=== PATIENT | female | born 1975 | race Caucasian/White ===

== ENCOUNTER 2016-08-25 21:10 | Emergency (ER) | payer OTHER ==
--- NOTE | 2016-08-25 23:12 | DIAGNOSTIC IMAGING REPORT ---
PROCEDURE: XR CHEST 1 VIEW INDICATION: SHORTNESS OF BREATH TECHNIQUE: Portable AP view 09:50 p.m. COMPARISON: None. FINDINGS: Lungs are clear. Heart and mediastinum are normal. Thorax is normal. IMPRESSION: 1. Negative chest.
--- NOTE | 2016-08-25 23:28 | ED ORDER SUMMARY ---
..... Patient: LOUISE LAINEZ OrderSheet [facility] VisitID: [id number] [place] [address] 41y, F Registration Date/Time: 08/25/2016 ORDER SHEET Weight: 90.7 kg (stated) Allergies: None GENERAL ORDERS: Chest 1V Urgent (21:42 08/25/2016 Jennifer Villalobos) (Ack 21:49 Mary Carmen) (21:55 MCampbell) Cardiac Panel Stat (21:43 08/25/2016 Jennifer Villalobos) (Ack 21:49 Mary Carmen) (22:07 RMarsden R.N.) BNP Urgent (21:43 08/25/2016 Jennifer Villalobos) (Ack 21:49 Mary Carmen) (22:07 RMarsden R.N.) D-Dimer Urgent (21:43 08/25/2016 Jennifer Villalobos) (Ack 21:49 Mary Carmen) (22:07 RMarsden R.N.) UA-Culture if indicated Urgent (21:43 08/25/2016 Jennifer Villalobos) (Ack 21:49 Mary Carmen) (Collected 22:43 RMarsden R.N.) (23:28 RMarsden R.N.) MEDICATION ORDERS: IV FLUIDS: IV Saline Lock (21:43 08/25/2016 Jennifer Villalobos) (22:07 RMarsden R.N.) ORDER SHEET NOTES: [Electronically signed by Sharon Mcfarlane R.N. (05:49 08/26/2016)] [Electronically signed by Reinaldo Cho Dr. (05:59 08/26/2016)] [Electronically locked/signed by Sharon Mcfarlane R.N. (05:49 08/26/2016)]
--- NOTE | 2016-08-25 23:28 | ED CLINICAL REPORT ---
Clinical Report - Physicians/Mid Levels [facility] [address] [place] [address] 08/25/2016 21:13 Patient: LOUISE LAINEZ Time Seen: 21:34; initial patient contact. Arrived- By private vehicle. Historian- patient. HISTORY OF PRESENT ILLNESS Chief Complaint: DYSPNEA and HISTORY OF ASTHMA. This started today and is still present. It was gradual in onset and has been constant. The dyspnea is described as mild. The dyspnea is worsened by cough (No better with ALbuterol). She has not had worsening of dyspnea with walking, exertion or supine position. No improvement of dyspnea with rest or sitting upright. The patient has had a cough, chest discomfort and wheezing. No sputum production, fever, sweating episodes, chills or dyspnea on exertion. No chest pain, calf pain, foot swelling, anxiety or dizziness. No palpitations. Similar symptoms previously: Many times. Recent medical care: Not recently seen/assessed. REVIEW OF SYSTEMS No nasal discharge, sinus drainage or calf pain. She has had pedal edema. All systems otherwise negative, except as recorded above. PAST HISTORY Kidney Cyst. Depression. SURGERIES: Breast Reduction. Hysterectomy. Tonsillectomy. Tubal Ligation. SOCIAL HISTORY Current every day smoker. Occasional alcohol use. No drug use. ADDITIONAL NOTES The nursing notes have been reviewed. PHYSICAL EXAM Vital Signs: 08/25/2016 21:16 BP: 128/72. HR: 75. RR: 16. O2 saturation: 100%. Pain level now: 0/10. Have been reviewed as normal. Appearance: Alert. No acute distress. Eyes: Eyes normal inspection. ENT: Pharynx normal. Neck: Normal inspection. Jugular venous distention present. CVS: Normal heart rate and rhythm. 2/6 holosystolic systolic murmur located at the base. No radiation of systolic murmur. Respiratory: No respiratory distress. Breath sounds normal. No chest wall tenderness. Skin: Skin warm and dry. Normal skin color. Extremities: Bilateral mild non-pitting edema of the lower extremities involving both feet and both ankles. No calf tenderness. Neuro: Oriented X 3. LABS, X-RAYS, AND EKG EKG: EKG time: (2118). No acute process. No acute ischemia. Normal EKG. Normal sinus rhythm. Rate: 82. Normal P waves. Normal CARMEN. Normal QRS complex. Normal axis. Normal ST and T waves, QT and QTc. Prior EKG unavailable. The study has been interpreted contemporaneously by me. The study has been independently viewed by me. The EKG appears to be a good tracing. Interpretation time: 2118. Chest X-ray: No acute disease. Normal lung markings present. Normal heart size. Mediastinum normal. Great vessels normal. No infiltrate. Views: AP. Technique: good. The X-rays were independently viewed by me and interpreted contemporaneously by me. Prior films were not available for comparison. Interpretation time: 22:02. Laboratory Tests: CBC w Diff: (MELANIE: 08/25/2016 21:50) ( MsgRcvd 08/25/2016 22:06) Final results Test Result Flag Units (Reference) WHITE BLOOD COUNT 10.2 K/uL (4.5-11.5) RED BLOOD COUNT 4.01 M/uL (4.00-5.20) HEMOGLOBIN 13.3 gm/dL (12.0-16.0) HEMATOCRIT 38.7 % (36.0-46.0) MEAN CELL VOLUME 96 fL (80-100) MEAN CORPUSCULAR HGB 33 pg (26-34) MEAN CORPUSCULAR HGB CONC 34 g/dL (31-37) RED CELL DISTRIBUTION WIDTH 13.7 % (11.6-14.8) PLATELET COUNT 188 K/uL (150-400) NEUTROPHIL % 58.0 % (50-75) LYMPH % 29.3 % (25-40) MONO % 3.6 % (3-14) EOSINOPHIL % 7.9 H % (0-4) BASOPHIL % 1.2 % (0-2) . PROGRESS AND PROCEDURES Disposition: Discharged home in good and improved condition. Condition: good. CLINICAL IMPRESSION Atypical chest pain .12 lead EKG performed. INSTRUCTIONS Do not work tomorrow. Avoid tobacco smoke. Do not smoke- benefits of smoking cessation discussed (>3 -10 minutes) and provided smoking cessation materials. Seek medical help to quit smoking. Your Current Medications: CONTINUE TAKING THE FOLLOWING MEDICATIONS: Albuterol Sulfate ER Oral. Lexapro Oral. Xanax Oral. Follow-up: Follow up with your doctor in about four days. Call for an appointment. Screening today revealed the patient's blood pressure to be in the pre-hypertensive range. The patient should follow up with a primary care provider for blood pressure management. (Electronically signed by Reinaldo Cho Dr. 08/26/2016 5:59)
--- NOTE | 2016-08-25 23:28 | ED ORDER SUMMARY ---
..... Patient: LOUISE LAINEZ OrderSheet [facility] VisitID: [id number] [place] [address] 41y, F Registration Date/Time: 08/25/2016 ORDER SHEET Weight: 90.7 kg (stated) Allergies: None GENERAL ORDERS: Chest 1V Urgent (21:42 08/25/2016 Jennifer Villalobos) (Ack 21:49 Mary Carmen) (21:55 MCampbell) Cardiac Panel Stat (21:43 08/25/2016 Jennifer Villalobos) (Ack 21:49 Mary Carmen) (22:07 RMarsden R.N.) BNP Urgent (21:43 08/25/2016 Jennifer Villalobos) (Ack 21:49 Mary Carmen) (22:07 RMarsden R.N.) D-Dimer Urgent (21:43 08/25/2016 Jennifer Villalobos) (Ack 21:49 Mary Carmen) (22:07 RMarsden R.N.) UA-Culture if indicated Urgent (21:43 08/25/2016 Jennifer Villalobos) (Ack 21:49 Mary Carmen) (Collected 22:43 RMarsden R.N.) (23:28 RMarsden R.N.) MEDICATION ORDERS: IV FLUIDS: IV Saline Lock (21:43 08/25/2016 Jennifer Villalobos) (22:07 RMarsden R.N.) ORDER SHEET NOTES: [Electronically signed by Sharon Mcfarlane R.N. (05:49 08/26/2016)] [Electronically signed by Reinaldo Cho Dr. (05:59 08/26/2016)] [Electronically locked/signed by Sharon Mcfarlane R.N. (05:49 08/26/2016)]
--- NOTE | 2016-08-25 23:28 | ED NURSING NOTES ---
Clinical Report - Nurses [facility] [address] [place] [address] 08/25/2016 21:13 [id number] Triage time 12:16. Acuity: LEVEL 3. Chief Complaint: SHORTNESS OF BREATH and CHEST PAIN (weakness). 21:27 08/25/16. Alert. No acute distress. JEFERSON COMA SCORE: [place] Coma Scale: 15- eyes open spontaneously (4); best verbal response- oriented x 4 (5); best motor response- obeys commands (6). --21:27 Sharon Mcfarlane R.N. 21:16 08/25/16. BP: 128/72. HR: 75. RR: 16. O2 saturation: 100%. Pain level now: 0/10. --21:27 Sharon Mcfarlane R.N. 21:18. --05:49 Sharon Mcfarlane R.N. 05:48 08/26/16. Temp: 97.6 F. --05:49 Sharon Mcfarlane R.N. Weight: 90.7 kg stated. Height/Length: 62.5 inches Per Patient. BMI: 36. --21:24 Sharon Mcfarlane R.N. Medications Albuterol Sulfate ER Oral. --21:21 Sharon Mcfarlane R.N. Lexapro Oral. --21:21 Sharon Mcfarlane R.N. Xanax Oral. --21:21 Sharon Mcfarlane R.N. Allergies None. --05:49 Sharon Mcfarlane R.N. History Arrived by private vehicle. Historian: patient and family. Accompanied by family and daughter and sister. This started today. ( Patient states she felt fatigued when she woke up this morning and noticed there was swelling in her feet. She states a couple of hours ago she started feeling SOB and chest pressure. She states " Usually albuterol helps when I cant catch my breath but it hasnt today."). ( leg swelling). Treatment BUSINESS AFFAIRS MANAGER: (albuterol.). PAST MEDICAL HX: Asthma. Immunizations: up-to-date. Denies current . SOCIAL HX: Heavy tobacco smoker- 1-2 packs per day. Occasional alcohol use. No drug use. FALL RISK ASSESSMENT: Fall risk assessment completed. No fall risk identified. NUTRITIONAL RISK ASSESSMENT: The nutritional risk assessment revealed no deficiencies. FUNCTIONAL ASSESSMENT: Functional assessment: no impairments noted. LEARNING NEEDS ASSESSMENT: The learning needs assessment revealed no barriers. SKIN INTEGRITY ASSESSMENT: Skin integrity risk assessment completed. No skin integrity risk identified. --21:27 Sharno Mcfarlane R.N. PROBLEMS: Kidney Cyst. Depression. --21: Sharon Mcfarlane R.N. ADDITIONAL SURGERIES: Breast Reduction. Hysterectomy. Tonsillectomy. Tubal Ligation. --: Sharon Mcfarlane R.N. Interventions ID band on patient. To treatment room. --: Sharon Mcfarlane R.N. PHYSICAL ASSESSMENT 21:27 08/25/16. Ambulatory to room. GENERAL / NEURO / PSYCH: Alert. Oriented X 4. Appears in no acute distress. HEENT: Mucous membranes are pink. RESPIRATORY: No respiratory distress. Respirations not labored. Breath sounds within normal limits. CVS: Capillary refill less than 2 seconds. SKIN: Skin is warm and dry. --:27 Sharon Mcfarlane R.N. NURSING PROGRESS NOTES 21:42 08/25/2016 Site #1 started via IV in the right hand with an 20g angiocath; one attempt. Saline lock flushed with 10 mL saline. --22:07 Sharon Mcfarlane R.N. 21:47. night monitor, pulse oximeter and NIBP monitor placed on patient. Patient gowned. Two patient identifiers checked. Call light placed in reach. Side rails up x 2. Bed placed in lowest position. Brakes of bed on. --22:41 Sharon Mcfarlane R.N. 22:21. Patient ID band checked for patient name and birthdate: patient confirmed. Instructions provided to collect clean catch urine and patient verbalized understanding. Clean catch urine collected with return of yellow-colored clear urine; sample sent to lab for urinalysis. Specimen labeled in the presence of the patient. --22:40 Sharon Mcfarlane R.N. EKG time: (2118). EKG was ordered, performed by a tech and shown to the ED physician. --22:50 Zach Zavala, ER Hydroelectric Production Manager. DISPOSITION / DISCHARGE 23:33 08/25/16. BP: 111/61. HR: 81. RR: 16. O2 saturation: 95% on room air. Temp: deferred. Pain level now: 0/10. --23:34 Sharon Mcfarlane R.N. 23:29 08/25/2016 Site #1 removed upon discharge. Manual pressure and bandaid applied. --23:39 Sharon Mcfarlane R.N. 23:34 08/25/16. No learning barriers present. Discharge instructions provided and reviewed with the patient and family. Work note given. Patient and family verbalized understanding. Written instructions provided in Dominican. The patient was discharged home and accompanied by family. She left the Emergency Department ambulatory and via private vehicle. Family member driving. --23:34 Sharon Mcfarlane R.N. Locked/Released at 08/26/2016 5:49 by Sharon Mcfarlane R.N.
--- NOTE | 2016-08-25 23:28 | ED NURSING NOTES ---
Clinical Report - Nurses [facility] [address] [place] [address] 08/25/2016 21:13 [id number] Triage time 12:16. Acuity: LEVEL 3. Chief Complaint: SHORTNESS OF BREATH and CHEST PAIN (weakness). 21:27 08/25/16. Alert. No acute distress. JEFERSON COMA SCORE: [place] Coma Scale: 15- eyes open spontaneously (4); best verbal response- oriented x 4 (5); best motor response- obeys commands (6). --21:27 Sharon Mcfarlane R.N. 21:16 08/25/16. BP: 128/72. HR: 75. RR: 16. O2 saturation: 100%. Pain level now: 0/10. --21:27 Sharon Mcfarlane R.N. 21:18. --05:49 Sharon Mcfarlane R.N. 05:48 08/26/16. Temp: 97.6 F. --05:49 Sharon Mcfarlane R.N. Weight: 90.7 kg stated. Height/Length: 62.5 inches Per Patient. BMI: 36. --21:24 Sharon Mcfarlane R.N. Medications Albuterol Sulfate ER Oral. --21:21 Sharon Mcfarlane R.N. Lexapro Oral. --21:21 Sharon Mcfarlane R.N. Xanax Oral. --21:21 Sharon Mcfarlane R.N. Allergies None. --05:49 Sharon Mcfarlane R.N. History Arrived by private vehicle. Historian: patient and family. Accompanied by family and daughter and sister. This started today. ( Patient states she felt fatigued when she woke up this morning and noticed there was swelling in her feet. She states a couple of hours ago she started feeling SOB and chest pressure. She states " Usually albuterol helps when I cant catch my breath but it hasnt today."). ( leg swelling). Treatment SCRAP SORTER: (albuterol.). PAST MEDICAL HX: Asthma. Immunizations: up-to-date. Denies current . SOCIAL HX: Heavy tobacco smoker- 1-2 packs per day. Occasional alcohol use. No drug use. FALL RISK ASSESSMENT: Fall risk assessment completed. No fall risk identified. NUTRITIONAL RISK ASSESSMENT: The nutritional risk assessment revealed no deficiencies. FUNCTIONAL ASSESSMENT: Functional assessment: no impairments noted. LEARNING NEEDS ASSESSMENT: The learning needs assessment revealed no barriers. SKIN INTEGRITY ASSESSMENT: Skin integrity risk assessment completed. No skin integrity risk identified. --21:27 Sharon Mcfarlane R.N. PROBLEMS: Kidney Cyst. Depression. --21: Sharon Mcfarlane R.N. ADDITIONAL SURGERIES: Breast Reduction. Hysterectomy. Tonsillectomy. Tubal Ligation. --: Sharon Mcfarlane R.N. Interventions ID band on patient. To treatment room. --: Sharon Mcfarlane R.N. PHYSICAL ASSESSMENT 21:27 08/25/16. Ambulatory to room. GENERAL / NEURO / PSYCH: Alert. Oriented X 4. Appears in no acute distress. HEENT: Mucous membranes are pink. RESPIRATORY: No respiratory distress. Respirations not labored. Breath sounds within normal limits. CVS: Capillary refill less than 2 seconds. SKIN: Skin is warm and dry. --:27 Sharon Mcfarlane R.N. NURSING PROGRESS NOTES 21:42 08/25/2016 Site #1 started via IV in the right hand with an 20g angiocath; one attempt. Saline lock flushed with 10 mL saline. --22:07 Sharon Mcfarlane R.N. 21:47. business solutions consultant, pulse oximeter and NIBP monitor placed on patient. Patient gowned. Two patient identifiers checked. Call light placed in reach. Side rails up x 2. Bed placed in lowest position. Brakes of bed on. --22:41 Sharon Mcfarlane R.N. 22:21. Patient ID band checked for patient name and birthdate: patient confirmed. Instructions provided to collect clean catch urine and patient verbalized understanding. Clean catch urine collected with return of yellow-colored clear urine; sample sent to lab for urinalysis. Specimen labeled in the presence of the patient. --22:40 Sharon Mcfarlane R.N. EKG time: (2118). EKG was ordered, performed by a tech and shown to the ED physician. --22:50 Zach Zavala, ER Biochemistry Technologist. DISPOSITION / DISCHARGE 23:33 08/25/16. BP: 111/61. HR: 81. RR: 16. O2 saturation: 95% on room air. Temp: deferred. Pain level now: 0/10. --23:34 Sharon Mcfarlane R.N. 23:29 08/25/2016 Site #1 removed upon discharge. Manual pressure and bandaid applied. --23:39 Sharon Mcfarlane R.N. 23:34 08/25/16. No learning barriers present. Discharge instructions provided and reviewed with the patient and family. Work note given. Patient and family verbalized understanding. Written instructions provided in Dutch. The patient was discharged home and accompanied by family. She left the Emergency Department ambulatory and via private vehicle. Family member driving. --23:34 Sharon Mcfarlane R.N. Locked/Released at 08/26/2016 5:49 by Sharon Mcfarlane R.N.
--- NOTE | 2016-08-26 05:59 | ED DISCHARGE INSTRUCTIONS ---
Patient: LOUISE LAINEZ General Instructions [facility] VisitID: [id number] [place] [address] 41y, F Registration Date/Time: 08/25/2016 Atypical chest pain .12 lead EKG performed. INSTRUCTIONS Do not work tomorrow. Avoid tobacco smoke. Do not smoke- benefits of smoking cessation discussed (>3 -10 minutes) and provided smoking cessation materials. Seek medical help to quit smoking. Your Current Medications: CONTINUE TAKING THE FOLLOWING MEDICATIONS: Albuterol Sulfate ER Oral. Lexapro Oral. Xanax Oral. Follow-up: Follow up with your doctor in about four days. Call for an appointment. Screening today revealed the patient's blood pressure to be in the pre-hypertensive range. The patient should follow up with a primary care provider for blood pressure management. ADDITIONAL INFORMATION Chest Pain, Noncardiac Based on your visit today, the exact cause of your chest pain is not certain. Your condition does not seem serious and your pain does not appear to be coming from your heart. However, sometimes the signs of a serious problem take more time to appear. Therefore, please watch for the warning signs listed below. Home Care: Rest today and avoid strenuous activity. Take any prescribed medicine as directed. Follow Up with your doctor or this facility as instructed or if you do not start to feel better within 24 hours. Get Prompt Medical Attention if any of the following occur: A change in the type of pain: if it feels different, becomes more severe, lasts longer, or begins to spread into your shoulder, arm, neck, jaw or back Shortness of breath or increased pain with breathing Cough with dark colored sputum (phlegm) or blood Weakness, dizziness, or fainting Fever of 100.4F (38C) or higher, or as directed by your healthcare provider Swelling, pain or redness in one leg How To Quit Smoking Smoking is one of the hardest habits to break. About half of all those who have ever smoked have been able to quit, and most of those (about 70%) who still smoke want to quit. Here are some of the best ways to stop smoking. Keep Trying: It takes most smokers about 8 tries before they are finally able to fully quit. So, the more often you try and fail, the better your chance of quitting the next time! So, don't give up! Go Cold [place]: Most ex-smokers quit cold turkey. Trying to cut back gradually doesn't seem to work as well, perhaps because it continues the smoking habit. Also, it is possible to fool yourself by inhaling more while smoking fewer cigarettes. This results in the same amount of nicotine in your body! Get Support: Support programs can make an important difference, especially for the heavy smoker. These groups offer lectures, methods to change your behavior and peer support. Call the free national Quitline for more information. 338-YZPC-GCE (873-399-1447). Low-cost or free programs are offered by many hospitals, local chapters of the [place] [employer] (077-953-3769) and the [place] [employer] (400-348-3583). Support at home is important too. Non-smokers can help by offering praise and encouragement. If the smoker fails to quit, encourage them to try again! Cpaa-Zmn-Kbubdoq Medicines: For those who can't quit on their own, Nicotine Replacement Therapy (NRT) may make quitting much easier. Certain aids such as the nicotine patch, gum and lozenge are available without a prescription. However, it is best to use these under the guidance of your doctor. The skin patch provides a steady supply of nicotine to the body. Nicotine gum and lozenge gives temporary bursts of low levels of nicotine. Both methods take the edge off the craving for cigarettes. WARNING: If you feel symptoms of nicotine overdose, such as nausea, vomiting, dizziness, weakness, or fast heartbeat, stop using these and see your doctor. Prescription Medicines: After evaluating your smoking patterns and prior attempts at quitting, your doctor may offer a prescription medicine such as bupropion (Zyban, Wellbutrin), varenicline (Chantix, Champix), a niocotine inhaler or nasal spray. Each has its unique advantage and side effects which your doctor can review with you. Health Benefits Of Quitting: The benefits of quitting start right away and keep improving the longer you go without smokin minutes: blood pressure and pulse return to normal 8 hours: oxygen levels return to normal 2 days: ability to smell and taste begins to improve as damaged nerves start to regrow 2-3 weeks: circulation and lung function improves 1-9 months: decreased cough, congestion and shortness of breath; less tired 1 year: risk of heart attack decreases by half 5 years: risk of lung cancer decreases by half; risk of stroke becomes the same as a non-smoker For information about how to quit smoking, visit the following links: National Cancer [place] , Clearing the Air, Quit Smoking Today - an online booklet. http://www.smokefree.gov/pubs/clearing_the_air.pdf Smokefree.gov http://smokefree.gov/ QuitNet http://www.quitnet.com/ You have been given the following additional information: Chest Pain, Noncardiac Smoking Cessation Do not work tomorrow. (Electronically signed by Reinaldo Cho Dr. 08/26/2016 5:59)
--- NOTE | 2016-08-26 05:59 | ED DISCHARGE INSTRUCTIONS ---
Patient: LOUISE LAINEZ General Instructions [facility] VisitID: [id number] [place] [address] 41y, F Registration Date/Time: 08/25/2016 Atypical chest pain .12 lead EKG performed. INSTRUCTIONS Do not work tomorrow. Avoid tobacco smoke. Do not smoke- benefits of smoking cessation discussed (>3 -10 minutes) and provided smoking cessation materials. Seek medical help to quit smoking. Your Current Medications: CONTINUE TAKING THE FOLLOWING MEDICATIONS: Albuterol Sulfate ER Oral. Lexapro Oral. Xanax Oral. Follow-up: Follow up with your doctor in about four days. Call for an appointment. Screening today revealed the patient's blood pressure to be in the pre-hypertensive range. The patient should follow up with a primary care provider for blood pressure management. ADDITIONAL INFORMATION Chest Pain, Noncardiac Based on your visit today, the exact cause of your chest pain is not certain. Your condition does not seem serious and your pain does not appear to be coming from your heart. However, sometimes the signs of a serious problem take more time to appear. Therefore, please watch for the warning signs listed below. Home Care: Rest today and avoid strenuous activity. Take any prescribed medicine as directed. Follow Up with your doctor or this facility as instructed or if you do not start to feel better within 24 hours. Get Prompt Medical Attention if any of the following occur: A change in the type of pain: if it feels different, becomes more severe, lasts longer, or begins to spread into your shoulder, arm, neck, jaw or back Shortness of breath or increased pain with breathing Cough with dark colored sputum (phlegm) or blood Weakness, dizziness, or fainting Fever of 100.4F (38C) or higher, or as directed by your healthcare provider Swelling, pain or redness in one leg How To Quit Smoking Smoking is one of the hardest habits to break. About half of all those who have ever smoked have been able to quit, and most of those (about 70%) who still smoke want to quit. Here are some of the best ways to stop smoking. Keep Trying: It takes most smokers about 8 tries before they are finally able to fully quit. So, the more often you try and fail, the better your chance of quitting the next time! So, don't give up! Go Cold [place]: Most ex-smokers quit cold turkey. Trying to cut back gradually doesn't seem to work as well, perhaps because it continues the smoking habit. Also, it is possible to fool yourself by inhaling more while smoking fewer cigarettes. This results in the same amount of nicotine in your body! Get Support: Support programs can make an important difference, especially for the heavy smoker. These groups offer lectures, methods to change your behavior and peer support. Call the free national Quitline for more information. 616-YSIL-TGM (342-428-8388). Low-cost or free programs are offered by many hospitals, local chapters of the [employer] [employer] (161-704-4395) and the [employer] (610-612-8993). Support at home is important too. Non-smokers can help by offering praise and encouragement. If the smoker fails to quit, encourage them to try again! [id number]-[id number] Medicines: For those who can't quit on their own, Nicotine Replacement Therapy (NRT) may make quitting much easier. Certain aids such as the nicotine patch, gum and lozenge are available without a prescription. However, it is best to use these under the guidance of your doctor. The skin patch provides a steady supply of nicotine to the body. Nicotine gum and lozenge gives temporary bursts of low levels of nicotine. Both methods take the edge off the craving for cigarettes. WARNING: If you feel symptoms of nicotine overdose, such as nausea, vomiting, dizziness, weakness, or fast heartbeat, stop using these and see your doctor. Prescription Medicines: After evaluating your smoking patterns and prior attempts at quitting, your doctor may offer a prescription medicine such as bupropion (Zyban, Wellbutrin), varenicline (Chantix, Champix), a niocotine inhaler or nasal spray. Each has its unique advantage and side effects which your doctor can review with you. Health Benefits Of Quitting: The benefits of quitting start right away and keep improving the longer you go without smokin minutes: blood pressure and pulse return to normal 8 hours: oxygen levels return to normal 2 days: ability to smell and taste begins to improve as damaged nerves start to regrow 2-3 weeks: circulation and lung function improves 1-9 months: decreased cough, congestion and shortness of breath; less tired 1 year: risk of heart attack decreases by half 5 years: risk of lung cancer decreases by half; risk of stroke becomes the same as a non-smoker For information about how to quit smoking, visit the following links: [employer] [place] , Clearing the Air, Quit Smoking Today - an online booklet. http://www.smokefree.gov/pubs/clearing_the_air.pdf Smokefree.gov http://smokefree.gov/ QuitNet http://www.quitnet.com/ You have been given the following additional information: Chest Pain, Noncardiac Smoking Cessation Do not work tomorrow. (Electronically signed by Reinaldo Cho Dr. 08/26/2016 5:59)
--- NOTE | 2016-08-26 05:59 | ED MED RECONCILIATION SUMMARY ---
Patient: LOUISE LAINEZ Medication Reconciliation Report [facility] VisitID: [id number] [address] [place] [address] 41y, F Registration Date/Time: 08/25/2016 Weight: 90.7 kg Height/Length: 60 in. BMI: 36.0 ALLERGIES: None The patient's Home Medications are listed below: CONTINUE TAKING THE FOLLOWING MEDICATIONS: Albuterol Sulfate ER Oral Lexapro Oral Xanax Oral The source(s) of the original Home Medication information: Not obtained. The following Medications were given to the patient in the Emergency Department: None. The following Medications were prescribed to the patient: None.
--- NOTE | 2016-08-26 05:59 | ED MAR SUMMARY ---
..... Medication Administration Record [facility] [address] [place], [place] [id number] Patient: LOUISE LAINEZ Visit ID: [id number] 41y, F Weight: 90.7 kg Height/Length: 62.5 in BMI: 36 ALLERGIES: None
--- NOTE | 2016-08-26 05:59 | ED MAR SUMMARY ---
..... Medication Administration Record [facility] [address] [place], [place] [id number] Patient: LOUISE LAINEZ Visit ID: [id number] 41y, F Weight: 90.7 kg Height/Length: 62.5 in BMI: 36 ALLERGIES: None
--- NOTE | 2016-08-26 05:59 | ED MED RECONCILIATION SUMMARY ---
Patient: LOUISE LAINEZ Medication Reconciliation Report [facility] VisitID: [id number] [address] [place] [address] 41y, F Registration Date/Time: 08/25/2016 Weight: 90.7 kg Height/Length: 60 in. BMI: 36.0 ALLERGIES: None The patient's Home Medications are listed below: CONTINUE TAKING THE FOLLOWING MEDICATIONS: Albuterol Sulfate ER Oral Lexapro Oral Xanax Oral The source(s) of the original Home Medication information: Not obtained. The following Medications were given to the patient in the Emergency Department: None. The following Medications were prescribed to the patient: None.
== END 2016-08-25 23:34 | disposition home or self-care (01) ==
LOC: ED SRH 21:10
DX: R07.89 Other chest pain (principal); J45.909 Unspecified asthma, uncomplicated; Z79.899 Other long term (current) drug therapy; F17.210 Nicotine dependence, cigarettes, uncomplicated
CPT/HCPCS: 90004; 90074; 90100; 90616; 91320; 91556; 92610; 92720; 95059